=== PATIENT | male | born 2000 | race Two or more races ===

== ENCOUNTER 2021-07-04 00:47 | Emergency (ER) | payer SELFPAY ==
[~2021-07-04] VITALS: Ht 180.3 cm; Wt 125.0 kg
[2021-07-04 00:52] VITALS: BP 149/84
--- NOTE | 2021-07-04 00:57 | NUR ---
pt sent to lobby, waiting for bed.
--- NOTE | 2021-07-04 02:10 | NUR ---
PT TAKEN TO ER BED 07
--- NOTE | 2021-07-04 02:37 | NUR ---
20 Y/O MALE BIBS, C/O CHEST DISCOMFORT OFF AND ON FOR 3 MONTHS. PATIENT PRESENTS TO ED WITH NO S/S AT THIS TIME. PT STATES FOR THE PAST 3 MONTH HE HAS HAD MOMENTS WHERE HE HAS A "PUMPING SENSATION" IN HIS CHEST THAT LASTS FOR <2 SECONDS. TODAY WHILE DRIVING HOME HE EXPERIENCED THIS SENSATION FOR >2 SECONDS AND IT MADE HIM NERVOUS. HE IS ALSO COMPLAINING OF CONSTANT LUQ FULLNESS. DENIES N/V/D; SKIN IS PINK/WARM/DRY; AAOX4 WITH EVEN AND STEADY GAIT; LUNGS CLEAR BL; HR EVEN AND REGULAR; PT DENIES ANY FEVER, CP, SOB, OR COUGH AT THIS TIME; PATIENT STATES PAIN OF 0/10 AT THIS TIME; VSS; PATIENT POSITIONED FOR COMFORT; HOB ELEVATED; BEDRAILS UP X2; BED DOWN. ER MD MADE AWARE OF PT STATUS. DENIES HX, ALLERGIES, OR MEDS.
--- NOTE | 2021-07-04 02:40 | NUR ---
ER AT BEDSIDE
--- NOTE | 2021-07-04 02:58 | NUR ---
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
[2021-07-04 03:32] LABS: ANION GAP 11.6 (8-16); CARBON DIOXIDE 28.1 mmol/L (21-32); POTASSIUM 3.7 mmol/L (3.5-5.1)
[2021-07-04 03:41] LABS: BASOPHILS # (AUTO) 0.2 K/uL (0.00-0.22); BASOPHILS % (AUTO) 1.8 % (0.0-2.0); EOSINOPHILS # (AUTO) 0.2 K/uL (0-0.4); EOSINOPHILS % (AUTO) 2.4 % (0.0-4.0); HEMATOCRIT 49.1 % (36-52); HEMOGLOBIN 16.7 g/dL (12.0-18.0); LYMPHOCYTES # (AUTO) 2.1 K/uL (2.0-11.5); LYMPHOCYTES % (AUTO) 20.5 % (20.5-51.1); MEAN CORPUSCULAR HEMOGLOBIN 30 pg (27-31); MEAN CORPUSCULAR HGB CONC 34 g/dL (33-37); MONOCYTES % (AUTO) 9.4 % (1.7-9.3); NEUTROPHILS # (AUTO) 6.7 K/uL (1.8-7.7); NEUTROPHILS % (AUTO) 65.9 % (42.2-75.2); PLATELET COUNT (AUTO) 294 K/uL (140-450); RED BLOOD CELL COUNT(AUTO) 5.52 MIL/uL (4.20-6.10); RED CELL DISTRIBUTION WIDTH 13.4 % (11.6-13.7); WHITE BLOOD COUNT (AUTO) 10.2 K/uL (4.8-10.8)
[2021-07-04] MEDS ORDERED: ALBU0.0912 IH (04:05)
[2021-07-04 04:14] VITALS: BP 138/82
--- NOTE | 2021-07-04 04:15 | NUR ---
Patient discharged with v/s stable. Written and verbal after care instructions for bronchospasmsm given and explained. Patient alert, oriented and verbalized understanding of instructions. Ambulatory with steady gait. All questions addressed prior to discharge. ID band removed. Patient advised to follow up with PMD. Rx of ALBUTEROL SULFATE given. Patient educated on indication of medication including possible reaction and side effects. Opportunity to ask questions provided and answered. VSS, A/OX4, AMBULATORY, UNLABORED BREATHING, AND CALM DEMEANOR.
== END 2021-07-04 04:13 | disposition home or self-care (01) ==
LOC: MED 00:47
DX: J98.01 Acute bronchospasm (principal); Z79.899 Other long term (current) drug therapy
CPT/HCPCS: 36415; 80048; 84484; 85025; 93005; 99284